=== PATIENT | female | born 1990 | race African-American/Black ===

== ENCOUNTER 2020-01-12 10:55 | Emergency (ER) | payer MEDICAID ==
[~2020-01-12] VITALS: Ht 165.1 cm; Wt 107.0 kg
[2020-01-12 13:51] VITALS: BP 127/51
== END 2020-01-12 13:53 | disposition home or self-care (01) ==
LOC: ER 10:55
DX: G51.0 Bell's palsy (principal)
CPT/HCPCS: 99283